=== PATIENT | female | born 1985 | race Caucasian/White ===

== ENCOUNTER → 2016-08-20 | Outpatient (CLI) | payer SELFPAY | LOC: MW.CHENT 14:28 | PROVIDERS: ATTEND Otolaryngology | DX: J32.9 Chronic sinusitis, unspecified (principal); J31.0 Chronic rhinitis | CPT/HCPCS: 36415; 86003 ==

== ENCOUNTER 2018-09-05 08:32 | Day surgery (SDC) | payer OTHER ==
[~2018-09-05 08:32] MED LIST: Lactated Ringers 1,000 ML IV SCH
--- NOTE | 2018-09-05 09:44 | PCM.PREANE ---
Preanesthetic Assessment - Anesthesia/Transfusion/Family Hx Anesthesia History: No Prior Anesthesia Family History of Anesthesia Reaction: No Transfusion History: No Prior Transfusion(s) - Review of Systems General: No Symptoms Pulmonary: No Symptoms Cardiovascular: No Symptoms Neurological: No Symptoms Other: Reports: None - Physical Assessment NPO Status Date: 09/04/18 O2 Sat by Pulse Oximetry: 97 Respiratory Rate: 16 Vital Signs: Last Vital Signs Temp 98.1 F 09/05/18 09:28 Pulse 82 09/05/18 09:28 Resp 16 09/05/18 09:28 BP 137/78 09/05/18 09:28 Pulse Ox 97 09/05/18 09:28 Height: 5 ft 4 in Weight: 92.533 kg ASA Class: 2 Mental Status: Alert & Oriented x3 Airway Class: Mallampati = 3 Dentition: Reports: Normal Dentition ROM/Head Extension: Full Lungs: Clear to Auscultation, Normal Respiratory Effort Cardiovascular: Regular Rate, Regular Rhythm - Lab Values: Laboratory Last Values Urine HCG, Qual NEGATIVE (NEGATIVE) 09/05/18 08:56 - Allergies Allergies/Adverse Reactions: Allergies Allergy/AdvReac Type Severity Reaction Status Date / Time clindamycin HCl Allergy Hives Verified 09/02/18 12:50 [From Cleocin] clindamycin palmitate HCl Allergy Hives Verified 09/02/18 12:50 [From Cleocin] clindamycin phosphate Allergy Hives Verified 09/02/18 12:50 [From Cleocin] kiwi Allergy Hives Verified 09/02/18 12:50 - Blood Blood Available: No - Anesthesia Plan Pre-Op Medication Ordered: None - Acknowledgements Anesthesia Type Planned: General Anesthesia, MAC Pt an Appropriate Candidate for the Planned Anesthesia: Yes Alternatives and Risks of Anesthesia Discussed w Pt/Guardian: Yes Pt/Guardian Understands and Agrees with Anesthesia Plan: Yes PreAnesthesia Questionnaire - Past Health History Medical/Surgical History: Denies Medical/Surgical History HEENT History: Reports: Allergic Rhinitis Respiratory History: Reports: Asthma Gastrointestinal History: Reports: PUD Genitourinary History: Reports: UTI, Recurrent Other Genitourinary History: chronic Interstitial Cystitis 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: Musculoskeletal History: Reports: Fracture Other Musculoskeletal History: hx of fx wrist and knee Neurological History: Reports: Concussion, Migraines Other Neuro History: takes propranolol for migraines Endocrine/Metabolic History: Reports: Obesity/BMI 30+ - Past Surgical History Head Surgeries/Procedures: - SUBSTANCE USE Smoking Status *Q: Never Smoker Recreational Drug Use History: No - HOME MEDS Home Medications: Home Meds Acetaminophen/Caffeine [Excedrin Tension Headache Cplt] 1 tab PO TID PRN [History] Albuterol Sulfate 1 vial INH Q4H PRN 09/02/18 [History] Albuterol [Ventolin HFA] 2 puff INH Q4H PRN 09/02/18 [History] Azelastine/Fluticasone [Dymista Nasal [place]] 1 squirt NASBOTH BID 09/02/18 [ History] Levonorgestrel-Ethin Estradiol [Aviane-28 Tablet] 1 tab PO DAILY 09/02/18 [ History] Loratadine [Claritin] 10 mg PO DAILY 09/02/18 [History] Montelukast Sodium 10 mg PO DAILY 09/02/18 [History] SUMAtriptan Succinate [Imitrex] 100 mg PO ASDIRECTED PRN MDD 200 mg 09/02/18 [ History] Triamcinolone Acetonide [Nasacort] 2 squirt NASBOTH BEDTIME 09/02/18 [History] - CURRENT (IN HOUSE) MEDS Current Meds: Current Medications Lactated Ringer's (Ringers, Lactated) 1,000 mls @ 125 mls/hr IV ASDIRECTED MAGED
[2018-09-05] MEDS ORDERED: Lidocaine 4% 5 ML Amp ONE (10:26)
[2018-09-05] MEDS ORDERED: Midazolam 1 MG/ML 2 ML SDV ONE (10:27)
[2018-09-05] MEDS ORDERED: Propofol 200 MG/20 ML SDV ONE (10:27)
--- NOTE | 2018-09-05 11:44 | PCM.POSTAN ---
POST ANESTHESIA ASSESSMENT - MENTAL STATUS Mental Status: Alert, Oriented - RESPIRATORY Respiratory Status: Respiratory Rate WNL, Airway Patent, O2 Saturation Stable - CARDIOVASCULAR CV Status: Pulse Rate WNL, Blood Pressure Stable - GASTROINTESTINAL GI Status: No Symptoms - PAIN Pain Score: 2 (mild cramping) - POST OP HYDRATION Hydration Status: Adequate & Stable
--- NOTE | 2018-09-05 11:57 | PCM48HPAN ---
Post Anesthesia Note - EVALUATION WITHIN 48HRS OF ANESTHETIC Vital Signs in Normal Range: Yes Patient Participated in Evaluation: Yes Respiratory Function Stable: Yes Airway Patent: Yes Cardiovascular Function Stable: Yes Hydration Status Stable: Yes Pain Control Satisfactory: Yes Nausea and Vomiting Control Satisfactory: Yes Mental Status Recovered: Yes Resp Rate: 12
--- NOTE | 2018-09-05 12:01 | PCM.OPNOTE ---
- General Post-Op/Procedure Note Date of Surgery/Procedure: 09/05/18 Operative Procedure(s): egd w bx. colonoscopy w random bx Findings: see dict [id number] Pre Op Diagnosis: BRBPR and abd pain Post-Op Diagnosis: Same Anesthesia Technique: Moderate Sedation Primary Surgeon: Abraham Staples Pathology: sent Complications: None Condition: Good Free Text/Narrative:: Intake & Output 09/04/18 09/05/18 09/05/18 22:59 06:59 14:59 Intake Total 800 Balance 800
[2018-09-05 13:26] VITALS: BP 105/65
--- NOTE | 2018-09-05 17:00 | OR ---
SURGEON: Abraham Staples MD DATE OF PROCEDURE: 09/05/2018 PREOPERATIVE DIAGNOSES: 1. Bright red blood per rectum. 2. Abdominal pain. POSTOPERATIVE DIAGNOSES: 1. Esophagogastroduodenoscopy diagnosis is acid reflux. 2. Colonoscopy diagnosis is hemorrhoids. PROCEDURE PERFORMED: 1. Esophagogastroduodenoscopy with biopsy. 2. Colonoscopy with biopsy. DESCRIPTION OF PROCEDURE: EGD: The patient was taken to the endoscopy room, and with the PACKAGE MAKER, Diprivan was administered. A well-lubricated EGD scope was gently inserted through the oropharynx, down the esophagus, passing through the gastroesophageal junction, into the stomach. The mucosa was examined upon the passage. Any etiology will be noted. Once in the stomach, we continued to advance to the distal antrum, passed through the pylorus into the second portion of the duodenum. Again, the mucosa was examined for any abnormality and etiology. The scope was then retrieved back to the stomach and then retroflexed to look at the fundus of the stomach. If a biopsy was indicated, we will biopsy the antrum, body, and gastroesophageal junction. The air will be sucked out while the scope is retrieved to reduce the patient's discomfort. The patient tolerated the procedure well. There were no intraoperative complications. Dr. Staples was present through the whole procedure. Prior to surgery, a time-out had been called, the patient identified, procedure identified and antibiotic administered. Colonoscopy: The patient was taken to the endoscopy room. A time out was called, patient identified, and procedure identified. Diprivan was then administrated. Patient went from awake to sleep, hearing doctor talking or door closing is normal. Perineum inspection and digital examination were then performed. A well-lubricated colonoscope was gently inserted through the rectum, advanced past the rectosigmoid junction, the descending colon, splenic flexure, transverse colon, hepatic flexure, ascending colon, arrived to the cecum. Cecum was identified as dictated in the finding. Then the scope was carefully withdrawn while attention was paid to the mucosal surface for any abnormality. Air will be sucked out during the scope withdrawal. At the rectum, retroflexed to examine any rectal diseases, fistula or hemorrhoids. During mucosal examination, biopsy performed. Patient tolerated procedure well. There were no intraoperative complications, and Dr. Staples was present throughout the whole procedure. FINDINGS: EGD findings: 1. The patient is easily sedated with PACKAGE MAKER and Diprivan. The patient is soundly snoring. 2. Oropharynx and proximal esophagus are free of disease, varicosity, or inflammation stricture. Distal esophagus at GE junction at 40 shows very significant flame like salmon-colored change consistent with significant acid reflux. Rugae is normal in appearance, antrum is normal, and duodenum is grossly normal. Retroflexed look at the fundus of stomach, there is no hiatal hernia. Biopsy done at antrum, body, GE junction at 40, and sucked out the gas while scope pulling out. Colonoscopy findings: 1. The patient is easily sedated with PACKAGE MAKER and Diprivan. The patient is soundly snoring. 2. Bowel prep is left to be desirable, marginally acceptable. There is no solid stool, but there is a large amount of brown opaque liquid stool and compromised study. Colon is rather straightforward. Cecum indicated by ileocecal fold, one-to-one indentation, light emittance, and appendiceal orifice. Mucosa examined upon scope pulling out with large amount of irrigation because of the compromised bowel prep. The patient does not have diverticulosis, polyp, mass, growth, inflammation, stricture, ulceration, AV malformation, bleeding, none of those. The patient has mild internal hemorrhoids. Random biopsy done for abdominal pain and the patient will benefit from repeat colonoscopy in 10 years from today or if clinically indicated otherwise. AIDA / CONCETTA /[id number]
== END 2018-09-05 12:35 | disposition home or self-care (01) ==
LOC: MW.SDS 08:32
PROVIDERS: ATTEND Surgery
DX: K29.51 Unspecified chronic gastritis with bleeding (principal); K21.0 Gastro-esophageal reflux disease with esophagitis; K64.8 Other hemorrhoids; R10.32 Left lower quadrant pain; R10.31 Right lower quadrant pain; I10 Essential (primary) hypertension; J45.909 Unspecified asthma, uncomplicated; G43.909 Migraine, unspecified, not intractable, without status migrainosus; E66.9 Obesity, unspecified; Z68.34 Body mass index [BMI] 34.0-34.9, adult; Z88.1 Allergy status to other antibiotic agents; Z91.018 Allergy to other foods; Z79.899 Other long term (current) drug therapy
CPT/HCPCS: 43239; 45380; 81025; J2001; J2250; J2704; J7120; 88305; 88312

== ENCOUNTER 2020-09-30 11:48 | Observation (INO) | payer OTHER, SELFPAY | END 2020-09-30 12:45 | disposition home or self-care (01) | LOC: MW.OB 11:48 | PROVIDERS: ADMIT Obstetrics & Gynecology; ATTEND Obstetrics & Gynecology | DX: O26.893 Other specified pregnancy related conditions, third trimester (principal); O16.3 Unspecified maternal hypertension, third trimester; Z3A.35 35 weeks gestation of pregnancy | CPT/HCPCS: 59025 ==

== ENCOUNTER 2020-10-26 08:03 | Inpatient (IN) | payer OTHER ==
[2020-10-26] MEDS ORDERED: Sodium Chloride 0.9% 10 ML SDV IV PRN (09:19)
[2020-10-26] MEDS ORDERED: Sodium Chloride 0.9% 2.5 ML Syringe FLUSH PRN (09:19)
[2020-10-26] MEDS ORDERED: Sodium Chloride 0.9% 10 ML Syringe FLUSH PRN (09:19)
[2020-10-26] MEDS ORDERED: Terbutaline 1 MG/ML SDV SUBCUT ONE (09:23)
[2020-10-26] MEDS ORDERED: Lactated Ringers 1,000 ML IV SCH (09:30)
[2020-10-26] MEDS ORDERED: Lidocaine 2% with EPINEPHrine 1:200,000 20 ML SDV ONE (09:50)
[2020-10-26] MEDS ORDERED: fentaNYL 100 MCG/2 ML SDV ONE (10:06)
[2020-10-26 10:13] LABS: BLOOD UREA NITROGEN,BUN 6 mg/dL (7.0-18.0); CARBON DIOXIDE,CO2 22.3 mmol/L (21.0-32.0); CHLORIDE,CL 103 mmol/L (98-107); GLUCOSE RANDOM 71 mg/dL (74-106); SODIUM,NA 136 mmol/L (136-145)
--- NOTE | 2020-10-26 10:14 | US ---
For Patients: As a result of the Century Cures Act, medical imaging exams and procedure reports are released immediately into your electronic medical record. You may view this report before your referring provider. If you have questions, please contact your health care provider. INDICATION: Assess position and IVORY prior to version TECHNIQUE: Ultrasound OB pelvis transabdominal. Real time hansen scale imaging of the fetus was performed. COMPARISON: 09/30/2020 FINDINGS: Sonographic imaging demonstrates a single living intrauterine gestation. Fetus demonstrates a regular cardiac rate of 140beats per minute. Fetus has a breech orientation. The placenta lies anterior without evidence of placenta previa. Amniotic fluid volume appears normal. IVORY equals 4.0 centimeters. IMPRESSION: 1. Single live intrauterine currently noted in breech presentation. 2. The amniotic fluid index is 4.0 centimeters (low). 3. Other findings are as discussed above. Dictated by Poncho Alcazar MD @ 10/26/2020 10:12:[address] Poncho Alcazar @ Oct 26 2020 10:12AM
[2020-10-26] MEDS ORDERED: ePHEDrine 50 MG/ML SDV IVPUSH PRN (10:18)
[2020-10-26] MEDS ORDERED: Phenylephrine/Normal Saline 100 MCG/ML 10 ML Syringe IVPUSH PRN (10:18)
--- NOTE | 2020-10-26 10:18 | PCM.PREANE ---
Preanesthetic Assessment - Anesthesia/Transfusion/Family Hx Anesthesia History: Prior Anesthesia Without Reaction Family History of Anesthesia Reaction: No Transfusion History: No Prior Transfusion(s) - Physical Assessment NPO Status Date: 10/26/20 NPO Status Time: 00:05 Height: 1.63 m Weight: 107.048 kg ASA Class: 2 Thyro-Mental Finger Breadths: 3 Mouth Opening Finger Breadths: 3 - Lab Values: Laboratory Last Values WBC 13.44 K/uL (4.0-11.0) H 10/26/20 08:45 RBC 4.40 M/uL (4.30-5.90) 10/26/20 08:45 Hgb 13.0 g/dL (12.0-16.0) 10/26/20 08:45 Hct 39.1 % (36.0-46.0) 10/26/20 08:45 MCV 88.9 fL (80.0-98.0) 10/26/20 08:45 MCH 29.5 pg (27.0-32.0) 10/26/20 08:45 MCHC 33.2 g/dL (31.0-37.0) 10/26/20 08:45 RDW Std Deviation 47.3 fl (28.0-62.0) 10/26/20 08:45 RDW Coeff of Dayne 15 % (11.0-15.0) 10/26/20 08:45 Plt Count 321 K/uL (150-400) 10/26/20 08:45 MPV 10.10 fL (7.40-12.00) 10/26/20 08:45 Neut % (Auto) 77.0 % (48.0-80.0) 10/26/20 08:45 Lymph % (Auto) 15.8 % (16.0-40.0) L 10/26/20 08:45 Sampson % (Auto) 6.1 % (0.0-15.0) 10/26/20 08:45 Eos % (Auto) 1.0 % (0.0-7.0) 10/26/20 08:45 Baso % (Auto) 0.1 % (0.0-1.5) 10/26/20 08:45 Neut # (Auto) 10.4 K/uL (1.4-5.7) H 10/26/20 08:45 Lymph # (Auto) 2.1 K/uL (0.6-2.4) 10/26/20 08:45 Sampson # (Auto) 0.8 K/uL (0.0-0.8) 10/26/20 08:45 Eos # (Auto) 0.1 K/uL (0.0-0.7) 10/26/20 08:45 Baso # (Auto) 0.0 K/uL (0.0-0.1) 10/26/20 08:45 Nucleated RBC % 0.0 /100WBC 10/26/20 08:45 Nucleated RBCs # 0 K/uL 10/26/20 08:45 Sodium 136 mmol/L (136-145) 10/26/20 08:45 Potassium 4.0 mmol/L (3.5-5.1) 10/26/20 08:45 Chloride 103 mmol/L (98-107) 10/26/20 08:45 Carbon Dioxide 22.3 mmol/L (21.0-32.0) 10/26/20 08:45 BUN 6 mg/dL (7.0-18.0) L 10/26/20 08:45 Creatinine 0.6 mg/dL (0.6-1.0) 10/26/20 08:45 Est Cr Clr Drug Dosing 111.93 mL/min 10/26/20 08:45 Estimated GFR (MDRD) > 60.0 ml/min 10/26/20 08:45 Glucose 71 mg/dL (74-106) L 10/26/20 08:45 Calcium 8.5 mg/dL (8.5-10.1) 10/26/20 08:45 Total Bilirubin 0.4 mg/dL (0.2-1.0) 10/26/20 08:45 AST 24 IU/L (15-37) 10/26/20 08:45 ALT 17 IU/L (14-63) 10/26/20 08:45 Alkaline Phosphatase 250 U/L (46-116) H 10/26/20 08:45 Total Protein 6.3 g/dL (6.4-8.2) L 10/26/20 08:45 Albumin 2.5 g/dL (3.4-5.0) L 10/26/20 08:45 Globulin 3.8 g/dL (2.6-4.0) 10/26/20 08:45 Albumin/Globulin Ratio 0.7 (0.9-1.6) L 10/26/20 08:45 - Allergies Allergies/Adverse Reactions: Allergies Allergy/AdvReac Type Severity Reaction Status Date / Time clindamycin HCl Allergy Hives Verified 10/07/20 09:55 [From Cleocin] clindamycin palmitate HCl Allergy Hives Verified 10/07/20 09:55 [From Cleocin] clindamycin phosphate Allergy Hives Verified 10/07/20 09:55 [From Cleocin] kiwi Allergy Hives Verified 10/07/20 09:55 - Acknowledgements Anesthesia Type Planned: Epidural Pt an Appropriate Candidate for the Planned Anesthesia: Yes Alternatives and Risks of Anesthesia Discussed w Pt/Guardian: Yes Pt/Guardian Understands and Agrees with Anesthesia Plan: Yes Additional Comments: History of Hypertension prior to . She takes inderal for hypertension. BP is well controlled at this time. 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: Musculoskeletal History: Reports: Fracture Other Musculoskeletal History: hx of fx wrist and knee Neurological History: Reports: Concussion, Migraines Other Neuro History: takes propranolol for migraines Endocrine/Metabolic History: Reports: Obesity/BMI 30+ - Past Surgical History Head Surgeries/Procedures: - HOME MEDS Home Medications: Home Meds Albuterol Sulfate 1 vial INH Q4H PRN 09/02/18 [History] Albuterol [Ventolin HFA] 2 puff INH Q4H PRN 09/02/18 [History] Loratadine [Claritin] 10 mg PO DAILY 09/02/18 [History] Montelukast Sodium 10 mg PO DAILY 09/02/18 [History] SUMAtriptan succinate [Imitrex] 100 mg PO ASDIRECTED PRN MDD 200 mg 09/02/18 [History] Triamcinolone Acetonide [Nasacort] 2 squirt NASBOTH BEDTIME 09/02/18 [History] - CURRENT (IN HOUSE) MEDS Current Meds: Current Medications Lactated Ringer's (Ringers, Lactated) 1,000 mls @ 500 mls/hr IV BOLUS MAGED Sodium Chloride (Sodium Chloride 0.9% 10 Ml Syringe) 10 ml FLUSH ASDIRECTED PRN PRN Reason: Keep Vein Open Sodium Chloride (Sodium Chloride 0.9% 2.5 Ml Syringe) 2.5 ml FLUSH ASDIRECTED PRN PRN Reason: Keep Vein Open Sodium Chloride (Sodium Chloride 0.9% 10 Ml Sdv) 10 ml IV ASDIRECTED PRN PRN Reason: IV Use Discontinued Medications Fentanyl (Fentanyl 100 Mcg/2 Ml Sdv) Confirm Administered Dose 100 mcg .ROUTE .STK-MED ONE Stop: 10/26/20 10:07 Lidocaine/Epinephrine (Lidocaine 2% With Epinephrine 1:200,000 20 Ml Sdv) Confirm Administered Dose 20 ml .ROUTE .STK-MED ONE Stop: 10/26/20 09:51 Terbutaline Sulfate (Terbutaline 1 Mg/Ml Sdv) 0.25 mg SUBCUT ONETIME ONE Stop: 10/26/20 09:24
--- NOTE | 2020-10-26 10:22 | PCM.PRNOTE ---
- Free Text/Narrative Note: Anes Note Patient presents for External Version/POssible C Section. Plan epidural anesthesia for this procedure. Patient sitting position. Level L3-L4 midline approach. Sterile technique. Chloraprep scrub to lumbar area. Sterile fenestrated drape applied. Epidural space easily achieved single attempt with eas eusing HAI techniuqe. HAI at 3 cm. Cath threaded 5 cm with ease. Cath secured at skin using sterile clear adhesive dressing. Test 1000 3 cc 1.5% lido with epi negative. 1004 Load 15 cc 2% lido with epi plus 100 mcg fentanyl in slow divided doses. Ruperto well. Time with patient started at 0948. Chan Winchester CRNA
[2020-10-26] MEDS ORDERED: Ketorolac 30 MG/ML SDV ONE (10:39)
[2020-10-26] MEDS ORDERED: Ondansetron 4 MG/2 ML SDV ONE (10:39)
[2020-10-26] MEDS ORDERED: Oxytocin 10 Units/1 ML SDV ONE (10:39)
[2020-10-26] MEDS ORDERED: Nalbuphine 10 MG/1 ML Vial IVPUSH PRN (11:07)
--- NOTE | 2020-10-26 12:33 | PCM.POSTAN ---
POST ANESTHESIA ASSESSMENT - MENTAL STATUS Mental Status: Alert - RESPIRATORY Respiratory Status: Respiratory Rate WNL - CARDIOVASCULAR CV Status: Pulse Rate WNL - GASTROINTESTINAL GI Status: No Symptoms - POST OP HYDRATION Hydration Status: Adequate & Stable
[2020-10-26] MEDS: Lactated Ringers 1,000 ML IV SCH ×2 (15:00→23:10)
[2020-10-26] MEDS ORDERED: Oxytocin/Lactated Ringers 30 UNIT/500 ML BAG IV SCH (17:15)
[2020-10-26] MEDS ORDERED: Oxytocin 10 Units/1 ML SDV IM PRN (17:15)
[2020-10-26] MEDS ORDERED: Methylergonovine 0.2 MG/1 ML Amp IM PRN (17:15)
[2020-10-26] MEDS ORDERED: Bisacodyl 10 MG Supp RECTAL PRN (17:15)
[2020-10-26] MEDS ORDERED: Ketorolac 30 MG/ML SDV IVPUSH SCH (17:15)
[2020-10-26] MEDS ORDERED: Lanolin 100% Cream 7 GM Tube TOP PRN (17:15)
[2020-10-26] MEDS ORDERED: diphenhydrAMINE 50 MG/ML SDV IVPUSH PRN (17:15)
[2020-10-26] MEDS ORDERED: Tranexamic Acid 1,000 MG in Sodium Chloride 0.9% 100 ML IV PRN (17:15)
[2020-10-26] MEDS ORDERED: Misoprostol 200 MCG Tab RECTAL PRN (17:15)
[2020-10-26] MEDS ORDERED: Ondansetron 4 MG/2 ML SDV IVPUSH PRN (17:15)
[2020-10-26] MEDS ORDERED: Ibuprofen 800 MG Tab PO PRN (17:15)
[2020-10-26] MEDS: Docusate Sodium 100 MG Cap PO SCH (20:59)
[2020-10-27] MEDS: Ketorolac 30 MG/ML SDV IVPUSH SCH ×3 (00:28→12:13)
--- NOTE | 2020-10-27 07:12 | PCM48HPAN ---
Post Anesthesia Note - EVALUATION WITHIN 48HRS OF ANESTHETIC Vital Signs in Normal Range: Yes Patient Participated in Evaluation: Yes Respiratory Function Stable: Yes Airway Patent: Yes Cardiovascular Function Stable: Yes Hydration Status Stable: Yes Pain Control Satisfactory: Yes Nausea and Vomiting Control Satisfactory: Yes Mental Status Recovered: Yes Vital Signs: Last Vital Signs Temp 36.6 C 10/27/20 04:00 Pulse 89 10/27/20 07:00 Resp 16 10/27/20 07:00 BP 106/58 L 10/27/20 04:00 Pulse Ox 96 10/27/20 07:00
[2020-10-27] MEDS: Docusate Sodium 100 MG Cap PO SCH ×2 (08:25→21:59)
[2020-10-27] MEDS: AMOXICILLIN 500MG CAPSULE PO SCH ×2 (13:44→22:06)
[2020-10-27] MEDS: Acetaminophen/oxyCODONE 325-5 MG Tab PO PRN ×2 (16:08→22:00)
--- NOTE | 2020-10-27 17:35 | PCM.LDHP ---
L&D History of Present Illness - General Date of Service: 10/26/20 (LATE ENTRY) Admit Problem/Dx: Patient Status Order with Admit Dx/Problem 10/26/20 09:19 Patient Status [ADT] Routine 10/26/20 17:15 Patient Status [ADT] Routine Admission Diagnosis/Problem Admission Diagnosis/Problem Source of Information: Patient History Limitations: Reports: No Limitations - History of Present Illness Introduction:: 35yo at 39w4d GA presented for scheduled ECV and primary in the case the version is not successful. Fetus was found to be breech at 36wGA. At 38wGA she was offered ECV, but deferred. care also c/b breech chronic hypertension on labetalol and asthma. Otherwise she is O+, abs screen neg, RI, HepBsAg neg, HIV neg, RPR NR, GC/Chlam neg, GBS neg. Pain Score: 6 - Related Data Allergies/Adverse Reactions: Allergies Allergy/AdvReac Type Severity Reaction Status Date / Time clindamycin HCl Allergy Hives Verified 10/07/20 09:55 [From Cleocin] clindamycin palmitate HCl Allergy Hives Verified 10/07/20 09:55 [From Cleocin] clindamycin phosphate Allergy Hives Verified 10/07/20 09:55 [From Cleocin] kiwi Allergy Hives Verified 10/07/20 09:55 Home Medications: Home Meds Albuterol Sulfate 1 vial INH Q4H PRN 09/02/18 [History] Albuterol [Ventolin HFA] 2 puff INH Q4H PRN 09/02/18 [History] Loratadine [Claritin] 10 mg PO DAILY 09/02/18 [History] Montelukast Sodium 10 mg PO DAILY 09/02/18 [History] SUMAtriptan succinate [Imitrex] 100 mg PO ASDIRECTED PRN MDD 200 mg 09/02/18 [History] Triamcinolone Acetonide [Nasacort] 2 squirt NASBOTH BEDTIME 09/02/18 [History] Past Medical History - Past Health History Medical/Surgical History: Denies Medical/Surgical History HEENT History: Reports: Allergic Rhinitis Cardiovascular History: Reports: Hypertension Respiratory History: Reports: Asthma Gastrointestinal History: Reports: PUD Genitourinary History: Reports: UTI, Recurrent Other Genitourinary History: chronic Interstitial Cystitis [employer] History: Reports: Musculoskeletal History: Reports: Fracture Other Musculoskeletal History: hx of fx wrist and knee Neurological History: Reports: Concussion, Migraines Other Neuro History: takes propranolol for migraines Endocrine/Metabolic History: Reports: Obesity/BMI 30+ - Infectious Disease History Infectious Disease History: Reports: Chicken Pox - Past Surgical History Head Surgeries/Procedures: Social & Family History - Family History Family Medical History: No Pertinent Family History H&P Review of Systems - Review of Systems: Review Of Systems: See Below General: Reports: No Symptoms HEENT: Reports: No Symptoms Pulmonary: Reports: No Symptoms Cardiovascular: Reports: No Symptoms Gastrointestinal: Reports: No Symptoms Genitourinary: Reports: No Symptoms Musculoskeletal: Reports: No Symptoms Skin: Reports: No Symptoms Psychiatric: Reports: No Symptoms Neurological: Reports: No Symptoms Hematologic/Lymphatic: Reports: No Symptoms Immunologic: Reports: No Symptoms L&D Exam - Exam Exam: See Below - Vital Signs Vital Signs: Last Vital Signs Temp 97.3 F 10/27/20 16:00 Pulse 89 10/27/20 16:00 Resp 18 10/27/20 16:00 BP 115/67 10/27/20 16:00 Pulse Ox 100 10/27/20 16:00 Weight: 107.048 kg - OB Specific Movement: Active Heart Tones: Present Heart Rate (FHR) Variability: Moderate (6-25 bmp) Presentation: Breech Estimated Weight: 8 - Exam General: Alert, Oriented Neck: Supple Lungs: Normal Respiratory Effort Cardiovascular: Regular Rate GI/Abdominal Exam: Soft, Non-Tender Extremities: Normal Inspection Skin: Warm, Dry, Intact Psychiatric: Alert, Normal Affect, Normal Mood - Patient Data Lab Results Last 24 hrs: Laboratory Results - last 24 hr 10/27/20 Range/Units 05:00 Hgb 10.5 L (12.0-16.0) g/dL Hct 31.6 L (36.0-46.0) % Result Diagrams: 10/27/20 05:00 10/26/20 08:45 - Problem List (1) Term SNOMED Code(s): 72639986 ICD Code: Z34.90 - ENCNTR FOR SUPRVSN OF NORMAL , UNSP, UNSP TRIMESTER Status: Acute Priority: High Current Visit: Yes (2) Breech presentation of fetus SNOMED Code(s): 0071921 ICD Code: O32.1XX0 - MATERNAL CARE FOR BREECH PRESENTATION, UNSP Status: Acute Priority: High Current Visit: Yes Problem List Initiated/Reviewed/Updated: Yes Orders Last 24hrs: Active Orders 24 hr Category Date Time Status Patient Status [ADT] Routine ADT 10/26/20 17:15 Active Ambulate [RC] PER UNIT ROUTINE Care 10/26/20 17:15 Active Antiembolic Devices [RC] PER UNIT ROUTINE Care 10/26/20 17:17 Active Communication Order [RC] Per Unit Routine Care 10/26/20 17:15 Active May Shower [RC] ASDIRECTED Care 10/26/20 17:15 Active Notify Provider Intake and Out [RC] ASDIRECTED Care 10/26/20 17:15 Active Notify Provider Vital Signs [RC] ASDIRECTED Care 10/26/20 17:15 Active RT Incentive Spirometry [RC] Q2HWA Care 10/26/20 17:15 Active Regular Diet [DIET] Diet 10/27/20 Breakfast Active Acetaminophen/oxyCODONE [Percocet 325-5 MG] Med 10/26/20 17:15 Active 1 tab PO Q4H PRN Acetaminophen/oxyCODONE [Percocet 325-5 MG] Med 10/26/20 17:15 Active 2 tab PO Q4H PRN Docusate Sodium [Colace] Med 10/26/20 21:00 Active 100 mg PO BID Ibuprofen [Motrin] Med 10/26/20 17:15 Active 800 mg PO Q8H PRN Lactated Ringers [Ringers, Lactated] 1,000 ml Med 10/26/20 17:15 Active IV ASDIRECTED Lanolin [Lansinoh HPA] Med 10/26/20 17:15 Active See Dose Instructions TOP ASDIRECTED PRN Methylergonovine [Methergine] Med 10/26/20 17:15 Active 0.2 mg IM ONETIME PRN Ondansetron [Zofran] Med 10/26/20 17:15 Active 4 mg IVPUSH Q4H PRN Oxytocin [Pitocin] Med 10/26/20 17:15 Active 10 unit IM ASDIRECTED PRN Oxytocin/Lactated Ringers [Pitocin in LR 30 Units/500 Med 10/26/20 17:15 Active ML] 30 unit in 500 ml IV TITRATE Patient's Own Medication [Ptom] Med 10/28/20 07:30 Active 1 each PO ACBREAKFAST Patient's Own Medication [Ptom] Med 10/27/20 21:00 Active 1 each PO BEDTIME Patient's Own Medication [Ptom] Med 10/28/20 09:00 Active 1 each PO DAILY Patient's Own Medication [Ptom] Med 10/27/20 14:00 Active 2 each PO TID Tranexamic Acid [Cyklokapron] 1,000 mg Med 10/26/20 17:15 Active Sodium Chloride 0.9% [Normal Saline] 100 ml IV ONETIME bisacodyL [Dulcolax] Med 10/26/20 17:15 Active 10 mg RECTAL ONETIME PRN diphenhydrAMINE [Benadryl] Med 10/26/20 17:15 Active 25 mg IVPUSH Q6H PRN miSOPROStoL [Cytotec] Med 10/26/20 17:15 Active 1,000 mcg RECTAL ONETIME PRN Assess Lochia [WOMSER] Per Unit Routine Oth 10/26/20 17:15 Ordered Assess Uterine Involution [WOMSER] Per Unit Routine Oth 10/26/20 17:15 Ordered Breast Pump [WOMSER] Per Unit Routine Oth 10/26/20 17:15 Ordered Peripheral IV Discontinue [OM.PC] Routine Oth 10/26/20 17:16 Ordered Sequential Compression Device [OM.PC] Per Unit Routine Oth 10/26/20 17:15 Ordered Medication Orders Bisacodyl (Bisacodyl 10 Mg Supp) 10 mg RECTAL ONETIME PRN PRN Reason: Constipation Diphenhydramine HCl (Diphenhydramine 50 Mg/Ml Sdv) 25 mg IVPUSH Q6H PRN PRN Reason: Itching or Nausea Docusate Sodium (Docusate Sodium 100 Mg Cap) 100 mg PO BID MAGED Last Admin: 10/27/20 08:25 Dose: 100 mg Documented by: Admin: 10/26/20 20:59 Dose: 100 mg Documented by: CECILIA Emollient Ointment (Lanolin 100% Cream 7 Gm Tube) 0 gm TOP ASDIRECTED PRN PRN Reason: Sore Nipples Last Admin: 10/27/20 12:12 Dose: 7 gm Documented by: JUN Ephedrine Sulfate (Ephedrine 50 Mg/Ml Sdv) 10 mg IVPUSH Q5M PRN PRN Reason: Hypotension Lactated Ringer's (Ringers, Lactated) 1,000 mls @ 500 mls/hr IV BOLUS [facility] Last Admin: 10/26/20 10:00 Dose: 500 mls/hr Documented by: LILIBETH Lactated Ringer's (Ringers, Lactated) 1,000 mls @ 125 mls/hr IV ASDIRECTED MAGED Last Admin: 10/26/20 23:10 Dose: 125 mls/hr Documented by: Infusion: 10/26/20 23:00 Dose: 125 mls/hr Documented by: Admin: 10/26/20 15:00 Dose: 125 mls/hr Documented by: LILIBETH Oxytocin/Lactated Ringer's (Pitocin In Lr 30 Units/500 Ml) 30 unit in 500 mls @ 2 mls/hr IV TITRATE [facility]; Protocol Tranexamic Acid 1,000 mg/ (Sodium Chloride) 110 mls @ 660 mls/hr IV ONETIME PRN PRN Reason: Bleeding Ibuprofen (Ibuprofen 800 Mg Tab) 800 mg PO Q8H PRN PRN Reason: mild pain or fever Methylergonovine Maleate (Methylergonovine 0.2 Mg/1 Ml Amp) 0.2 mg IM ONETIME PRN PRN Reason: Excessive Vaginal Bleeding Misoprostol (Misoprostol 200 Mcg Tab) 1,000 mcg RECTAL ONETIME PRN PRN Reason: excessive bleeding Ondansetron HCl (Ondansetron 4 Mg/2 Ml Sdv) 4 mg IVPUSH Q4H PRN PRN Reason: Nausea/Vomiting Oxycodone/Acetaminophen (Acetaminophen/Oxycodone 325-5 Mg Tab) 1 tab PO Q4H PRN PRN Reason: Pain (severe 7-10) Oxycodone/Acetaminophen (Acetaminophen/Oxycodone 325-5 Mg Tab) 2 tab PO Q4H PRN PRN Reason: Pain (severe 7-10) Last Admin: 10/27/20 16:08 Dose: 2 tab Documented by: JUN Oxytocin (Oxytocin 10 Units/1 Ml Sdv) 10 unit IM ASDIRECTED PRN PRN Reason: Excessive Vaginal Bleeding Omeprazole 20mg (Capsule) 1 each PO ACBREAKFAST MAGED Propranolol Er 60mg (Capsule) 1 each PO DAILY MAGED Amoxicillin 500mg (Capsule) 2 each PO TID MAGED Last Admin: 10/27/20 13:44 Dose: 2 each Documented by: JUN Montelukast 10mg 1 each PO BEDTIME MAGED Phenylephrine HCl (Phenylephrine/Normal Saline 100 Mcg/Ml 10 Ml Syringe) 0.1 mg IVPUSH Q5M PRN PRN Reason: Hypotension Sodium Chloride (Sodium Chloride 0.9% 10 Ml Syringe) 10 ml FLUSH ASDIRECTED PRN PRN Reason: Keep Vein Open Sodium Chloride (Sodium Chloride 0.9% 2.5 Ml Syringe) 2.5 ml FLUSH ASDIRECTED PRN PRN Reason: Keep Vein Open Sodium Chloride (Sodium Chloride 0.9% 10 Ml Sdv) 10 ml IV ASDIRECTED PRN PRN Reason: IV Use Assessment/Plan Comment:: 35yo at 39w4d here for ECV followed by IOL, or primary if ECV not successful. course c/b chronic hypertension on labetalol. Reactive Strip. Anesthesia consult for epidural. Risks and benefits of ECV discussed between Dr Calderon and patient. Patient agreeable to attempt with ECV.
--- NOTE | 2020-10-27 17:48 | PCM.DEL ---
L & D Note - General Info Date of Service: 10/26/20 (LATE ENTRY) Mother's Due Date: 10/29/20 - Delivery Note Delivery Outcome: Livebirth Delivery Method: Primary Presentation: Breech Nuchal Cord: None Anesthesia Type: Combined Spinal Epidural Laceration: None Cord: 3 Vessels Estimated Blood Loss: 700 Resuscitation Needed: No : Suctioned, Stimulated Delivery Comments (Free Text/Narrative):: Uncomplicated Primary delivery of live male , in a breech position, with combined spinal epidural anesthesia. No meconium or nuchal cord present. Spontaneous delivery of placenta with 3- vessel cord. All sponges and instrument counts correct. See operative report for detailed delivery procedure. Delivery details: Male infant Weight: 9'0" EBL 700cc - General Info Date of Service: 10/26/20 (LATE ENTRY) Admission Dx/Problem (Free Text): Patient Status Order with Admit Dx/Problem 10/26/20 09:19 Patient Status [ADT] Routine 10/26/20 17:15 Patient Status [ADT] Routine Admission Diagnosis/Problem Admission Diagnosis/Problem Subjective Update: 35yo G3 now P3003 S/p uncomplicated PLTCS for breech presentation. ECV was attempted prior to the but was not successful. Shortly after the ECV attempt patient c/o SOB, and VS revealed low BP. Patient was given O2 via nasal canula, and a bolus of fluid with improvement of her Sxs. Patient was then taken to the OR for the delivery. course c/b chronic HTN and patient has been on labetalol and aspirin. Functional Status: Reports: Pain Controlled - Review of Systems General: Reports: No Symptoms HEENT: Reports: No Symptoms Pulmonary: Reports: No Symptoms Cardiovascular: Reports: No Symptoms Gastrointestinal: Reports: No Symptoms Genitourinary: Reports: No Symptoms Musculoskeletal: Reports: No Symptoms Skin: Reports: No Symptoms Neurological: Reports: No Symptoms Psychiatric: Reports: No Symptoms - Patient Data Vitals - Most Recent: Last Vital Signs Temp 97.3 F 10/27/20 16:00 Pulse 89 10/27/20 16:00 Resp 18 10/27/20 16:00 BP 115/67 10/27/20 16:00 Pulse Ox 100 10/27/20 16:00 Weight - Most Recent: 107.048 kg I&O - Last 24 Hours: Intake & Output 10/27/20 10/27/20 10/27/20 06:59 14:59 22:59 Intake Total 1200 Output Total 155 1000 Balance -34* -1000 Lab Results Last 24 Hours: Laboratory Results - last 24 hr 10/27/20 Range/Units 05:00 Hgb 10.5 L (12.0-16.0) g/dL Hct 31.6 L (36.0-46.0) % Med Orders - Current: Current Medications Bisacodyl (Bisacodyl 10 Mg Supp) 10 mg RECTAL ONETIME PRN PRN Reason: Constipation Diphenhydramine HCl (Diphenhydramine 50 Mg/Ml Sdv) 25 mg IVPUSH Q6H PRN PRN Reason: Itching or Nausea Docusate Sodium (Docusate Sodium 100 Mg Cap) 100 mg PO BID [facility] Last Admin: 10/27/20 08:25 Dose: 100 mg Documented by: Emollient Ointment (Lanolin 100% Cream 7 Gm Tube) 0 gm TOP ASDIRECTED PRN PRN Reason: Sore Nipples Last Admin: 10/27/20 12:12 Dose: 7 gm Documented by: Ephedrine Sulfate (Ephedrine 50 Mg/Ml Sdv) 10 mg IVPUSH Q5M PRN PRN Reason: Hypotension Lactated Ringer's (Ringers, Lactated) 1,000 mls @ 500 mls/hr IV BOLUS [facility] Last Admin: 10/26/20 10:00 Dose: 500 mls/hr Documented by: Lactated Ringer's (Ringers, Lactated) 1,000 mls @ 125 mls/hr IV ASDIRECTED [facility] Last Admin: 10/26/20 23:10 Dose: 125 mls/hr Documented by: Oxytocin/Lactated Ringer's (Pitocin In Lr 30 Units/500 Ml) 30 unit in 500 mls @ 2 mls/hr IV TITRATE [facility]; Protocol Tranexamic Acid 1,000 mg/ (Sodium Chloride) 110 mls @ 660 mls/hr IV ONETIME PRN PRN Reason: Bleeding Ibuprofen (Ibuprofen 800 Mg Tab) 800 mg PO Q8H PRN PRN Reason: mild pain or fever Methylergonovine Maleate (Methylergonovine 0.2 Mg/1 Ml Amp) 0.2 mg IM ONETIME PRN PRN Reason: Excessive Vaginal Bleeding Misoprostol (Misoprostol 200 Mcg Tab) 1,000 mcg RECTAL ONETIME PRN PRN Reason: excessive bleeding Ondansetron HCl (Ondansetron 4 Mg/2 Ml Sdv) 4 mg IVPUSH Q4H PRN PRN Reason: Nausea/Vomiting Oxycodone/Acetaminophen (Acetaminophen/Oxycodone 325-5 Mg Tab) 1 tab PO Q4H PRN PRN Reason: Pain (severe 7-10) Oxycodone/Acetaminophen (Acetaminophen/Oxycodone 325-5 Mg Tab) 2 tab PO Q4H PRN PRN Reason: Pain (severe 7-10) Last Admin: 10/27/20 16:08 Dose: 2 tab Documented by: Oxytocin (Oxytocin 10 Units/1 Ml Sdv) 10 unit IM ASDIRECTED PRN PRN Reason: Excessive Vaginal Bleeding Omeprazole 20mg (Capsule) 1 each PO ACBREAKFAST [facility] Propranolol Er 60mg (Capsule) 1 each PO DAILY [facility] Amoxicillin 500mg (Capsule) 2 each PO TID [facility] Last Admin: 10/27/20 13:44 Dose: 2 each Documented by: Montelukast 10mg 1 each PO BEDTIME [facility] Phenylephrine HCl (Phenylephrine/Normal Saline 100 Mcg/Ml 10 Ml Syringe) 0.1 mg IVPUSH Q5M PRN PRN Reason: Hypotension Sodium Chloride (Sodium Chloride 0.9% 10 Ml Syringe) 10 ml FLUSH ASDIRECTED PRN PRN Reason: Keep Vein Open Sodium Chloride (Sodium Chloride 0.9% 2.5 Ml Syringe) 2.5 ml FLUSH ASDIRECTED PRN PRN Reason: Keep Vein Open Sodium Chloride (Sodium Chloride 0.9% 10 Ml Sdv) 10 ml IV ASDIRECTED PRN PRN Reason: IV Use Discontinued Medications Fentanyl (Fentanyl 100 Mcg/2 Ml Sdv) Confirm Administered Dose 100 mcg .ROUTE .STK-MED ONE Stop: 10/26/20 10:07 Ketorolac Tromethamine (Ketorolac 30 Mg/Ml Sdv) Confirm Administered Dose 30 mg .ROUTE .STK-MED ONE Stop: 10/26/20 10:40 Ketorolac Tromethamine (Ketorolac 30 Mg/Ml Sdv) 30 mg IVPUSH Q6H [facility] Stop: 10/27/20 17:16 Last Admin: 10/26/20 18:07 Dose: 30 mg Documented by: Ketorolac Tromethamine (Ketorolac 30 Mg/Ml Sdv) 30 mg IVPUSH Q6H MAGED Stop: 10/27/20 12:01 Last Admin: 10/27/20 12:13 Dose: 30 mg Documented by: Lidocaine/Epinephrine (Lidocaine 2% With Epinephrine 1:200,000 20 Ml Sdv) Confirm Administered Dose 20 ml .ROUTE .STK-MED ONE Stop: 10/26/20 09:51 Last Admin: 10/26/20 20:38 Dose: Not Given Documented by: Nalbuphine HCl (Nalbuphine 10 Mg/1 Ml Vial) 5 mg IVPUSH Q3H PRN PRN Reason: Pruritis Stop: 10/27/20 11:07 Ondansetron HCl (Ondansetron 4 Mg/2 Ml Sdv) Confirm Administered Dose 4 mg .ROUTE .STK-MED ONE Stop: 10/26/20 10:40 Oxytocin (Oxytocin 10 Units/1 Ml Sdv) Confirm Administered Dose 20 unit .ROUTE .STK-MED ONE Stop: 10/26/20 10:40 Terbutaline Sulfate (Terbutaline 1 Mg/Ml Sdv) 0.25 mg SUBCUT ONETIME ONE Stop: 10/26/20 09:24 Last Admin: 10/26/20 20:38 Dose: Not Given Documented by: - Exam Urinary Catheter Total Time: 0Days 20Hours General: Alert, Oriented Lungs: Normal Respiratory Effort Cardiovascular: Regular Rate GI/Abdominal Exam: Soft, Non-Tender Extremities: Normal Inspection Skin: Warm, Dry, Intact Wound/Incisions: Dressing Dry and Intact Psy/Mental Status: Alert, Normal Affect, Normal Mood - Problem List & Annotations (1) Term SNOMED Code(s): 94815840 Code(s): Z34.90 - ENCNTR FOR SUPRVSN OF NORMAL , UNSP, UNSP TRIMESTER Status: Acute Priority: High Current Visit: Yes (2) Breech presentation of fetus SNOMED Code(s): 1758984 Code(s): O32.1XX0 - MATERNAL CARE FOR BREECH PRESENTATION, UNSP Status: Acute Priority: High Current Visit: Yes (3) Term delivered SNOMED Code(s): 56825434, 205637019 Code(s): O80 - ENCOUNTER FOR FULL-TERM UNCOMPLICATED DELIVERY Status: Acute Current Visit: Yes - Problem List Review Problem List Initiated/Reviewed/Updated: Yes - My Orders Last 24 Hours: My Active Orders 10/26/20 17:15 Patient Status [ADT] Routine Ambulate [RC] PER UNIT ROUTINE Communication Order [RC] Per Unit Routine May Shower [RC] ASDIRECTED Notify Provider Intake and Out [RC] ASDIRECTED Notify Provider Vital Signs [RC] ASDIRECTED RT Incentive Spirometry [RC] Q2HWA Acetaminophen/oxyCODONE [Percocet 325-5 MG] 1 tab PO Q4H PRN Acetaminophen/oxyCODONE [Percocet 325-5 MG] 2 tab PO Q4H PRN Ibuprofen [Motrin] 800 mg PO Q8H PRN Lactated Ringers [Ringers, Lactated] 1,000 ml IV ASDIRECTED Lanolin [Lansinoh HPA] See Dose Instructions TOP ASDIRECTED PRN Methylergonovine [Methergine] 0.2 mg IM ONETIME PRN Ondansetron [Zofran] 4 mg IVPUSH Q4H PRN Oxytocin [Pitocin] 10 unit IM ASDIRECTED PRN Oxytocin/Lactated Ringers [Pitocin in LR 30 Units/500 ML] 30 unit in 500 ml IV TITRATE Tranexamic Acid [Cyklokapron] 1,000 mg Sodium Chloride 0.9% [Normal Saline] 100 ml IV ONETIME bisacodyL [Dulcolax] 10 mg RECTAL ONETIME PRN diphenhydrAMINE [Benadryl] 25 mg IVPUSH Q6H PRN miSOPROStoL [Cytotec] 1,000 mcg RECTAL ONETIME PRN Assess Lochia [WOMSER] Per Unit Routine Assess Uterine Involution [WOMSER] Per Unit Routine Breast Pump [WOMSER] Per Unit Routine Sequential Compression Device [OM.PC] Per Unit Routine 10/26/20 17:16 Peripheral IV Discontinue [OM.PC] Routine 10/26/20 17:17 Antiembolic Devices [RC] PER UNIT ROUTINE 10/26/20 21:00 Docusate Sodium [Colace] 100 mg PO BID - Plan Plan:: 35yo G3 now P3003 s/p uncomplicated PLTCS at 39w4d for breech presentation, after unsuccessful ECV attempt. course c/b chronic hypertension on labetalol. Patient doing well, in recovery room, but baby by her side. Routine care.
--- NOTE | 2020-10-27 18:00 | PCM.PNPP ---
- General Info Date of Service: 10/27/20 Admission Dx/Problem (Free Text): Patient Status Order with Admit Dx/Problem 10/26/20 09:19 Patient Status [ADT] Routine 10/26/20 17:15 Patient Status [ADT] Routine Admission Diagnosis/Problem Admission Diagnosis/Problem Subjective Update: 35yo G3 now P3003 S/p uncomplicated PLTCS for breech presentation. ECV was attempted prior to the but was not successful. Shortly after the ECV attempt patient c/o SOB, and VS revealed low BP. Patient was given O2 via nasal canula, and a bolus of fluid with improvement of her Sxs. Patient was then taken to the OR for the delivery. course c/b chronic HTN and patient has been on labetalol and aspirin. 10/27/20: Patient is doing well. No c/o. Eating w/o nausea or vomiting. Passing gas. Link cath removed a few hours earlier, patient has not voided yet, denies pelvic pain. Functional Status: Reports: Pain Controlled - Review of Systems General: Reports: No Symptoms HEENT: Reports: No Symptoms Pulmonary: Reports: No Symptoms Cardiovascular: Reports: No Symptoms Gastrointestinal: Reports: No Symptoms Genitourinary: Reports: No Symptoms Musculoskeletal: Reports: No Symptoms Skin: Reports: No Symptoms Neurological: Reports: No Symptoms Psychiatric: Reports: No Symptoms - General Info Date of Service: 10/27/20 - Patient Data Vital Signs - Most Recent: Last Vital Signs Temp 97.3 F 10/27/20 16:00 Pulse 89 10/27/20 16:00 Resp 18 10/27/20 16:00 BP 115/67 10/27/20 16:00 Pulse Ox 100 10/27/20 16:00 Weight - Most Recent: 107.048 kg I&O - Last 24 Hours: Intake & Output 10/27/20 10/27/20 10/27/20 06:59 14:59 22:59 Intake Total 1200 Output Total 155 1000 Balance -34* -1000 Lab Results - Last 24 Hours: Laboratory Results - last 24 hr 10/27/20 Range/Units 05:00 Hgb 10.5 L (12.0-16.0) g/dL Hct 31.6 L (36.0-46.0) % Med Orders - Current: Current Medications Bisacodyl (Bisacodyl 10 Mg Supp) 10 mg RECTAL ONETIME PRN PRN Reason: Constipation Diphenhydramine HCl (Diphenhydramine 50 Mg/Ml Sdv) 25 mg IVPUSH Q6H PRN PRN Reason: Itching or Nausea Docusate Sodium (Docusate Sodium 100 Mg Cap) 100 mg PO BID [facility] Last Admin: 10/27/20 08:25 Dose: 100 mg Documented by: Emollient Ointment (Lanolin 100% Cream 7 Gm Tube) 0 gm TOP ASDIRECTED PRN PRN Reason: Sore Nipples Last Admin: 10/27/20 12:12 Dose: 7 gm Documented by: Ephedrine Sulfate (Ephedrine 50 Mg/Ml Sdv) 10 mg IVPUSH Q5M PRN PRN Reason: Hypotension Lactated Ringer's (Ringers, Lactated) 1,000 mls @ 500 mls/hr IV BOLUS [facility] Last Admin: 10/26/20 10:00 Dose: 500 mls/hr Documented by: Lactated Ringer's (Ringers, Lactated) 1,000 mls @ 125 mls/hr IV ASDIRECTED [facility] Last Admin: 10/26/20 23:10 Dose: 125 mls/hr Documented by: Oxytocin/Lactated Ringer's (Pitocin In Lr 30 Units/500 Ml) 30 unit in 500 mls @ 2 mls/hr IV TITRATE [facility]; Protocol Tranexamic Acid 1,000 mg/ (Sodium Chloride) 110 mls @ 660 mls/hr IV ONETIME PRN PRN Reason: Bleeding Ibuprofen (Ibuprofen 800 Mg Tab) 800 mg PO Q8H PRN PRN Reason: mild pain or fever Methylergonovine Maleate (Methylergonovine 0.2 Mg/1 Ml Amp) 0.2 mg IM ONETIME PRN PRN Reason: Excessive Vaginal Bleeding Misoprostol (Misoprostol 200 Mcg Tab) 1,000 mcg RECTAL ONETIME PRN PRN Reason: excessive bleeding Ondansetron HCl (Ondansetron 4 Mg/2 Ml Sdv) 4 mg IVPUSH Q4H PRN PRN Reason: Nausea/Vomiting Oxycodone/Acetaminophen (Acetaminophen/Oxycodone 325-5 Mg Tab) 1 tab PO Q4H PRN PRN Reason: Pain (severe 7-10) Oxycodone/Acetaminophen (Acetaminophen/Oxycodone 325-5 Mg Tab) 2 tab PO Q4H PRN PRN Reason: Pain (severe 7-10) Last Admin: 10/27/20 16:08 Dose: 2 tab Documented by: Oxytocin (Oxytocin 10 Units/1 Ml Sdv) 10 unit IM ASDIRECTED PRN PRN Reason: Excessive Vaginal Bleeding Omeprazole 20mg (Capsule) 1 each PO ACBREAKFAST [facility] Propranolol Er 60mg (Capsule) 1 each PO DAILY [facility] Amoxicillin 500mg (Capsule) 2 each PO TID [facility] Last Admin: 10/27/20 13:44 Dose: 2 each Documented by: Montelukast 10mg 1 each PO BEDTIME [facility] Phenylephrine HCl (Phenylephrine/Normal Saline 100 Mcg/Ml 10 Ml Syringe) 0.1 mg IVPUSH Q5M PRN PRN Reason: Hypotension Sodium Chloride (Sodium Chloride 0.9% 10 Ml Syringe) 10 ml FLUSH ASDIRECTED PRN PRN Reason: Keep Vein Open Sodium Chloride (Sodium Chloride 0.9% 2.5 Ml Syringe) 2.5 ml FLUSH ASDIRECTED PRN PRN Reason: Keep Vein Open Sodium Chloride (Sodium Chloride 0.9% 10 Ml Sdv) 10 ml IV ASDIRECTED PRN PRN Reason: IV Use Discontinued Medications Fentanyl (Fentanyl 100 Mcg/2 Ml Sdv) Confirm Administered Dose 100 mcg .ROUTE .STK-MED ONE Stop: 10/26/20 10:07 Ketorolac Tromethamine (Ketorolac 30 Mg/Ml Sdv) Confirm Administered Dose 30 mg .ROUTE .STK-MED ONE Stop: 10/26/20 10:40 Ketorolac Tromethamine (Ketorolac 30 Mg/Ml Sdv) 30 mg IVPUSH Q6H [facility] Stop: 10/27/20 17:16 Last Admin: 10/26/20 18:07 Dose: 30 mg Documented by: Ketorolac Tromethamine (Ketorolac 30 Mg/Ml Sdv) 30 mg IVPUSH Q6H [facility] Stop: 10/27/20 12:01 Last Admin: 10/27/20 12:13 Dose: 30 mg Documented by: Lidocaine/Epinephrine (Lidocaine 2% With Epinephrine 1:200,000 20 Ml Sdv) Confirm Administered Dose 20 ml .ROUTE .STK-MED ONE Stop: 10/26/20 09:51 Last Admin: 06/02/21 20:38 Dose: Not Given Documented by: Nalbuphine HCl (Nalbuphine 10 Mg/1 Ml Vial) 5 mg IVPUSH Q3H PRN PRN Reason: Pruritis Stop: 10/27/20 11:07 Ondansetron HCl (Ondansetron 4 Mg/2 Ml Sdv) Confirm Administered Dose 4 mg .ROUTE .STK-MED ONE Stop: 10/26/20 10:40 Oxytocin (Oxytocin 10 Units/1 Ml Sdv) Confirm Administered Dose 20 unit .ROUTE .STK-MED ONE Stop: 10/26/20 10:40 Terbutaline Sulfate (Terbutaline 1 Mg/Ml Sdv) 0.25 mg SUBCUT ONETIME ONE Stop: 10/26/20 09:24 Last Admin: 10/26/20 20:38 Dose: Not Given Documented by: - Interaction Infant Disposition, : in Room with Family Infant Interaction: Holding Infant Feeding: Attempted ; Nursed Fair/Poor, Breastfed ; Nursed Well Support Person: - Recovery Exam Fundal Tone: Firm Fundal Level: 1 Fingerbreadths Below Umbilicus Fundal Placement: Midline Lochia Amount: Scant, Small Lochia Color: Rubra/Red Perineum Description: Intact, Minimal Bruising/Swelling Episiotomy/Laceration: None Bladder Status: Voiding Urinary Elimination: Voided Other Urinary Elimination, : due to void - Exam General: Alert, Oriented Lungs: Normal Respiratory Effort Cardiovascular: Regular Rate GI/Abdominal Exam: Non-Tender Extremities: Normal Inspection Skin: Warm, Dry Wound/Incisions: Dressing Dry and Intact Psy/Mental Status: Alert, Normal Affect, Normal Mood - Problem List & Annotations (1) Term SNOMED Code(s): 75338063 Code(s): Z34.90 - ENCNTR FOR SUPRVSN OF NORMAL , UNSP, UNSP TRIMESTER Status: Acute Priority: High Current Visit: Yes (2) Breech presentation of fetus SNOMED Code(s): 6222444 Code(s): O32.1XX0 - MATERNAL CARE FOR BREECH PRESENTATION, UNSP Status: Acute Priority: High Current Visit: Yes (3) Term delivered SNOMED Code(s): 95717913, 868582772 Code(s): O80 - ENCOUNTER FOR FULL-TERM UNCOMPLICATED DELIVERY Status: Acute Current Visit: Yes - Problem List Review Problem List Initiated/Reviewed/Updated: Yes - My Orders Last 24 Hours: My Active Orders 10/26/20 17:15 Patient Status [ADT] Routine Ambulate [RC] PER UNIT ROUTINE Communication Order [RC] Per Unit Routine May Shower [RC] ASDIRECTED Notify Provider Intake and Out [RC] ASDIRECTED Notify Provider Vital Signs [RC] ASDIRECTED RT Incentive Spirometry [RC] Q2HWA Acetaminophen/oxyCODONE [Percocet 325-5 MG] 1 tab PO Q4H PRN Acetaminophen/oxyCODONE [Percocet 325-5 MG] 2 tab PO Q4H PRN Ibuprofen [Motrin] 800 mg PO Q8H PRN Lactated Ringers [Ringers, Lactated] 1,000 ml IV ASDIRECTED Lanolin [Lansinoh HPA] See Dose Instructions TOP ASDIRECTED PRN Methylergonovine [Methergine] 0.2 mg IM ONETIME PRN Ondansetron [Zofran] 4 mg IVPUSH Q4H PRN Oxytocin [Pitocin] 10 unit IM ASDIRECTED PRN Oxytocin/Lactated Ringers [Pitocin in LR 30 Units/500 ML] 30 unit in 500 ml IV TITRATE Tranexamic Acid [Cyklokapron] 1,000 mg Sodium Chloride 0.9% [Normal Saline] 100 ml IV ONETIME bisacodyL [Dulcolax] 10 mg RECTAL ONETIME PRN diphenhydrAMINE [Benadryl] 25 mg IVPUSH Q6H PRN miSOPROStoL [Cytotec] 1,000 mcg RECTAL ONETIME PRN Assess Lochia [WOMSER] Per Unit Routine Assess Uterine Involution [WOMSER] Per Unit Routine Breast Pump [WOMSER] Per Unit Routine Sequential Compression Device [OM.PC] Per Unit Routine 10/26/20 17:16 Peripheral IV Discontinue [OM.PC] Routine 10/26/20 17:17 Antiembolic Devices [RC] PER UNIT ROUTINE 10/26/20 21:00 Docusate Sodium [Colace] 100 mg PO BID - Plan Plan:: 35yo G3 now P3003 s/p uncomplicated PLTCS at 39w4d for breech presentation, after unsuccessful ECV attempt. course c/b chronic hypertension on labetalol. Patient doing well, nursing baby. Patient had voided according to nurse. Continue Routine care.
[2020-10-27] MEDS ORDERED: MONTELUKAST 10MG PO SCH (21:00)
--- NOTE | 2020-10-28 07:29 | PCM.DCSUM1 ---
Discharge Summary - Hospital Course Free Text/Narrative:: Discharge home with baby. Follow up in the clinic in one week for post-op incision check. Follow up again in 6 weeks for routine visit; sooner, if needed. Diagnosis: Stroke: No Modified [place] Scale: No Symptoms at All Modified [place] Scale Score: 0 - Discharge Data Discharge Date: 10/28/20 Discharge Disposition: Home, Self-Care 01 Condition: Good - Referral to Home Health Primary Care Physician: Etienne Calderon MD - Patient Instructions Diet: Regular Diet as Tolerated, Drink 8-10+ Glasses/Day Activity: As Tolerated, No Strenuous Activities, Rest and Relax Today Driving: Do Not Drive Showering/Bathing: May Shower Wound/Incision Care: Keep Operative Site/Wound Site Clean and Dry Notify Provider of: Fever, Increased Pain, Swelling and Redness, Drainage, Nausea and/or Vomiting - Discharge Plan *PRESCRIPTION DRUG MONITORING PROGRAM REVIEWED*: Not Applicable *COPY OF PRESCRIPTION DRUG MONITORING REPORT IN PATIENT OLAF: Not Applicable Prescriptions/Med Rec: Ibuprofen [Motrin] 800 mg PO Q8H PRN #90 tablet PRN Reason: mild pain or fever Acetaminophen/oxyCODONE [Percocet 325-5 MG] 1 - 2 tab PO Q4H PRN #16 tablet PRN Reason: Pain (Severe 7-10) Home Medications: Home Meds Albuterol Sulfate 1 vial INH Q4H PRN 09/02/18 [History] Albuterol [Ventolin HFA] 2 puff INH Q4H PRN 09/02/18 [History] Loratadine [Claritin] 10 mg PO DAILY 09/02/18 [History] Montelukast Sodium 10 mg PO DAILY 09/02/18 [History] SUMAtriptan succinate [Imitrex] 100 mg PO ASDIRECTED PRN MDD 200 mg 09/02/18 [History] Triamcinolone Acetonide [Nasacort] 2 squirt NASBOTH BEDTIME 09/02/18 [History] Acetaminophen/oxyCODONE [Percocet 325-5 MG] 1 - 2 tab PO Q4H PRN #16 tablet 10/28/20 [Rx] Ibuprofen [Motrin] 800 mg PO Q8H PRN #90 tablet 10/28/20 [Rx] Oxygen Therapy Mode: Room Air Referrals: Etienne Calderon MD [Primary Care Provider] - 11/09/20 1:30 pm (6 week follow up appointment 12/07/2020 at 1:30PM with Dr. Calderon ) - Discharge Summary/Plan Comment DC Time >30 min.: Yes - General Info Date of Service: 10/28/20 Admission Dx/Problem (Free Text: Patient Status Order with Admit Dx/Problem 10/26/20 09:19 Patient Status [ADT] Routine 10/26/20 17:15 Patient Status [ADT] Routine Admission Diagnosis/Problem Admission Diagnosis/Problem Subjective Update: Ambulating, urinating, and tolerating diet well. Bonding well with baby. No concern/questions at this time. - Review of Systems General: Reports: No Symptoms HEENT: Reports: No Symptoms Pulmonary: Reports: No Symptoms Cardiovascular: Reports: No Symptoms Gastrointestinal: Reports: No Symptoms Genitourinary: Reports: No Symptoms Musculoskeletal: Reports: No Symptoms Skin: Reports: No Symptoms Neurological: Reports: No Symptoms Psychiatric: Reports: No Symptoms - Patient Data Vitals - Most Recent: Last Vital Signs Temp 97.7 F 10/28/20 05:13 Pulse 77 10/28/20 05:13 Resp 15 10/28/20 05:13 BP 122/75 10/28/20 05:13 Pulse Ox 98 10/28/20 05:13 Weight - Most Recent: 236 lb I&O - Last 24 hours: Intake & Output 10/27/20 10/28/20 10/28/20 22:59 06:59 14:59 Output Total 1000 Balance -1000 Med Orders - Current: Current Medications Bisacodyl (Bisacodyl 10 Mg Supp) 10 mg RECTAL ONETIME PRN PRN Reason: Constipation Diphenhydramine HCl (Diphenhydramine 50 Mg/Ml Sdv) 25 mg IVPUSH Q6H PRN PRN Reason: Itching or Nausea Docusate Sodium (Docusate Sodium 100 Mg Cap) 100 mg PO BID [facility] Last Admin: 10/27/20 21:59 Dose: 100 mg Documented by: Emollient Ointment (Lanolin 100% Cream 7 Gm Tube) 0 gm TOP ASDIRECTED PRN PRN Reason: Sore Nipples Last Admin: 10/27/20 12:12 Dose: 7 gm Documented by: Ephedrine Sulfate (Ephedrine 50 Mg/Ml Sdv) 10 mg IVPUSH Q5M PRN PRN Reason: Hypotension Lactated Ringer's (Ringers, Lactated) 1,000 mls @ 500 mls/hr IV BOLUS [facility] Last Admin: 10/26/20 10:00 Dose: 500 mls/hr Documented by: Lactated Ringer's (Ringers, Lactated) 1,000 mls @ 125 mls/hr IV ASDIRECTED [facility] Last Admin: 10/26/20 23:10 Dose: 125 mls/hr Documented by: Oxytocin/Lactated Ringer's (Pitocin In Lr 30 Units/500 Ml) 30 unit in 500 mls @ 2 mls/hr IV TITRATE [facility]; Protocol Tranexamic Acid 1,000 mg/ (Sodium Chloride) 110 mls @ 660 mls/hr IV ONETIME PRN PRN Reason: Bleeding Ibuprofen (Ibuprofen 800 Mg Tab) 800 mg PO Q8H PRN PRN Reason: mild pain or fever Methylergonovine Maleate (Methylergonovine 0.2 Mg/1 Ml Amp) 0.2 mg IM ONETIME PRN PRN Reason: Excessive Vaginal Bleeding Misoprostol (Misoprostol 200 Mcg Tab) 1,000 mcg RECTAL ONETIME PRN PRN Reason: excessive bleeding Ondansetron HCl (Ondansetron 4 Mg/2 Ml Sdv) 4 mg IVPUSH Q4H PRN PRN Reason: Nausea/Vomiting Oxycodone/Acetaminophen (Acetaminophen/Oxycodone 325-5 Mg Tab) 1 tab PO Q4H PRN PRN Reason: Pain (severe 7-10) Oxycodone/Acetaminophen (Acetaminophen/Oxycodone 325-5 Mg Tab) 2 tab PO Q4H PRN PRN Reason: Pain (severe 7-10) Last Admin: 10/27/20 22:00 Dose: 2 tab Documented by: Oxytocin (Oxytocin 10 Units/1 Ml Sdv) 10 unit IM ASDIRECTED PRN PRN Reason: Excessive Vaginal Bleeding Omeprazole 20mg (Capsule) 1 each PO ACBREAKFAST [facility] Propranolol Er 60mg (Capsule) 1 each PO DAILY [facility] Amoxicillin 500mg (Capsule) 2 each PO TID [facility] Last Admin: 10/27/20 22:06 Dose: 2 each Documented by: Montelukast 10mg 1 each PO BEDTIME [facility] Last Admin: 10/27/20 22:03 Dose: 1 each Documented by: Phenylephrine HCl (Phenylephrine/Normal Saline 100 Mcg/Ml 10 Ml Syringe) 0.1 mg IVPUSH Q5M PRN PRN Reason: Hypotension Sodium Chloride (Sodium Chloride 0.9% 10 Ml Syringe) 10 ml FLUSH ASDIRECTED PRN PRN Reason: Keep Vein Open Sodium Chloride (Sodium Chloride 0.9% 2.5 Ml Syringe) 2.5 ml FLUSH ASDIRECTED PRN PRN Reason: Keep Vein Open Sodium Chloride (Sodium Chloride 0.9% 10 Ml Sdv) 10 ml IV ASDIRECTED PRN PRN Reason: IV Use Discontinued Medications Fentanyl (Fentanyl 100 Mcg/2 Ml Sdv) Confirm Administered Dose 100 mcg .ROUTE .[employer] ONE Stop: 10/26/20 10:07 Ketorolac Tromethamine (Ketorolac 30 Mg/Ml Sdv) Confirm Administered Dose 30 mg .ROUTE .thinkingphonesMED ONE Stop: 10/26/20 10:40 Ketorolac Tromethamine (Ketorolac 30 Mg/Ml Sdv) 30 mg IVPUSH Q6H [facility] Stop: 10/27/20 17:16 Last Admin: 10/26/20 18:07 Dose: 30 mg Documented by: Ketorolac Tromethamine (Ketorolac 30 Mg/Ml Sdv) 30 mg IVPUSH Q6H [facility] Stop: 10/27/20 12:01 Last Admin: 10/27/20 12:13 Dose: 30 mg Documented by: Lidocaine/Epinephrine (Lidocaine 2% With Epinephrine 1:200,000 20 Ml Sdv) Confirm Administered Dose 20 ml .ROUTE .[employer] ONE Stop: 10/26/20 09:51 Last Admin: 10/26/20 20:38 Dose: Not Given Documented by: Nalbuphine HCl (Nalbuphine 10 Mg/1 Ml Vial) 5 mg IVPUSH Q3H PRN PRN Reason: Pruritis Stop: 10/27/20 11:07 Ondansetron HCl (Ondansetron 4 Mg/2 Ml Sdv) Confirm Administered Dose 4 mg .ROUTE .[employer] ONE Stop: 10/26/20 10:40 Oxytocin (Oxytocin 10 Units/1 Ml Sdv) Confirm Administered Dose 20 unit .ROUTE .[employer] ONE Stop: 10/26/20 10:40 Terbutaline Sulfate (Terbutaline 1 Mg/Ml Sdv) 0.25 mg SUBCUT ONETIME ONE Stop: 10/26/20 09:24 Last Admin: 10/26/20 20:38 Dose: Not Given Documented by: - Exam General: Reports: Alert, Oriented, Cooperative, No Acute Distress Lungs: Reports: Clear to Auscultation, Normal Respiratory Effort Cardiovascular: Reports: Regular Rate, Regular Rhythm GI/Abdominal Exam: Soft, Non-Tender (Female) Exam: Deferred Rectal (Female) Exam: Deferred Back Exam: Reports: Normal Inspection, Full Range of Motion Extremities: Normal Inspection, Normal Range of Motion, Non-Tender, Normal Capillary Refill Skin: Reports: Warm, Dry, Intact Wound/Incisions: Reports: Healing Well Neurological: Reports: No New Focal Deficit, Normal Speech, Normal Tone, Sensation Intact Psy/Mental Status: Reports: Alert, Normal Affect, Normal Mood
[2020-10-28] MEDS ORDERED: OMEPRAZOLE 20MG CAPSULE PO SCH (07:30)
[2020-10-28] MEDS: Docusate Sodium 100 MG Cap PO SCH (08:15)
[2020-10-28] MEDS: Acetaminophen/oxyCODONE 325-5 MG Tab PO PRN ×2 (08:16→12:05)
[2020-10-28] MEDS ORDERED: PROPRANOLOL 60 MG PO SCH (09:00)
[2020-10-28] MEDS: AMOXICILLIN 500MG CAPSULE PO SCH ×2 (09:10→14:40)
[2020-10-28 11:59] VITALS: BP 109/73; PULSE 87
--- NOTE | 2020-10-28 20:44 | OR ---
SURGEON: Zayda Santos MD DATE OF PROCEDURE: 10/26/2020 INDICATION FOR SURGERY: Term , breech presentation. PREOPERATIVE DIAGNOSIS: Term , breech presentation. POSTOPERATIVE DIAGNOSIS: Term , breech presentation. OPERATION: Primary low transverse . PRIMARY SURGEON: Zayda Santos MD PORTRAIT PHOTOGRAPHER: Etienne Calderon MD ANESTHESIA: Spinal epidural. ANESTHESIOLOGIST: Chan Delgado ESTIMATED BLOOD LOSS: 700 mL. URINE OUTPUT: Adequate. DRAIN AND PACK: Link catheter draining clear urine. SPECIMEN: None. FINDINGS: Delivery detail: Live , male baby. weight 9 pounds 0 ounces. Placenta delivery method: Spontaneous. Maternal delivery complications: None. delivery complications: None. TECHNIQUE: Lo Miramontes was taken to the operating room. She was then transferred to the operating table and placed in a dorsal supine position with a leftward tilt. After adequate anesthesia was confirmed, she was prepped and draped in the usual sterile fashion. A time-out was completed with IV running and Link catheter draining. A Pfannenstiel skin incision was made. The incision was carried down with the Bovie cautery through the subcutaneous tissue to the underlying rectus fascia. The rectus fascia was incised in the midline and extended laterally using the Donald scissors. The underlying rectus muscles were dissected off bluntly and sharply. The rectus muscles were then in the midline and the parietal peritoneum was opened. A self-retaining retractor, a bladder blade, and Muro retractor were placed. The lower uterine segment was identified in the surgical field. A bladder flap was made and the lower uterine segment was incised in a transverse fashion. The incision was extended laterally with cephalocaudal traction. The 's vertex was delivered atraumatically followed by the remainder of the . The cord was clamped and cut and the infant handed off to the pediatric staff. Blood was collected for possible cord gases. The placenta was delivered spontaneously. The uterus was then cleaned of all clot and debris. The uterine incision was reapproximated in a running locked stitch fashion utilizing a 0 Vicryl. A 2nd running stitch imbricating the 1st layer was performed utilizing another 0 Vicryl. A [id number] was needed to obtain hemostasis. The gutter was irrigated and cleared of all clots and debris. All operative sites were again examined and noted to be hemostatic. The retractor and bladder blade were removed and the peritoneum was closed with a running stitch fashion utilizing a 3-0 Vicryl. The rectus fascia was also reapproximated with a PDS in a running stitch fashion. Subcutaneous tissue was closed in a running stitch fashion utilizing a 3-0 Vicryl. Hemostasis was assured. The skin was then closed with a 4-0 Monocryl in a subcuticular fashion. All sponges, needle, and instrument counts were correct per the OR staff at the end of procedure. The patient was taken to the recovery room in a stable condition. Prior to the operation, the patient had received 2 g of Ancef. ROB / CONCETTA /[id number]
== END 2020-10-28 15:40 | disposition home or self-care (01) | DRG 788 ==
LOC: MW.OB 08:03
PROVIDERS: ADMIT Obstetrics & Gynecology; ATTEND Obstetrics & Gynecology
PROC: 10D00Z1 Extraction of Products of Conception, Low, Open Approach (ICD-10-PCS; principal; 2020-10-26)
DX: O32.1XX0 Maternal care for breech presentation, not applicable or unspecified (principal); O16.4 Unspecified maternal hypertension, complicating childbirth; O99.52 Diseases of the respiratory system complicating childbirth; J45.909 Unspecified asthma, uncomplicated; O99.214 Obesity complicating childbirth; E66.9 Obesity, unspecified; Z3A.39 39 weeks gestation of pregnancy; Z37.0 Single live birth; Z88.1 Allergy status to other antibiotic agents; Z91.048 Other nonmedicinal substance allergy status
CPT/HCPCS: 36415; 59025; 59412; 76815; 76815-26; 80053; 85014; 85018; 85025; 86850; 86900; 86901; A9270-GY; J1885; J2405; J2590; J3010; J7120